=== PATIENT | male | born 1980 | race Caucasian/White ===

== ENCOUNTER 2021-06-05 09:51 | Emergency (ER) | payer OTHER ==
[2021-06-05] MEDS ORDERED: AMOXICILLIN875 MG PO (11:31)
== END 2021-06-05 11:49 | disposition home or self-care (01) ==
LOC: ER1 09:51
DX: I88.9 Nonspecific lymphadenitis, unspecified (principal); I10 Essential (primary) hypertension; F17.200 Nicotine dependence, unspecified, uncomplicated
CPT/HCPCS: 99283